=== PATIENT | female | born 1995 | race African-American/Black ===

== ENCOUNTER 2023-02-01 22:23 | Inpatient (IN) | payer OTHER ==
[2023-02-01 22:45] VITALS: BMI 38.0
[2023-02-01] MEDS ORDERED: hydrALAZINE 20 MG/ML VIAL ONE (23:22)
[2023-02-01] MEDS ORDERED: Ondansetron ODT 4 MG TAB PO PRN (23:30)
[2023-02-01] MEDS ORDERED: HYDROcodone/Acetaminophen 5/325 mg Tablet PO PRN (23:30)
[2023-02-01] MEDS ORDERED: Ondansetron PF 4 MG/2 ML Vial IVP PRN (23:30)
[2023-02-01] MEDS ORDERED: hydrALAZINE 20 MG/ML VIAL SLOW IVP PRN ×2 (23:34)
[2023-02-01] MEDS ORDERED: Lorazepam 2 MG/ML VIAL SLOW IVP PRN (23:34)
[2023-02-01] MEDS ORDERED: Labetalol HCl 100 MG/20 ML VIAL SLOW IVP PRN (23:34)
[2023-02-01] MEDS ORDERED: Calcium Gluc 4.6 MEQ/10 ML (100 MG/ML) SLOW IVP PRN (23:34)
[2023-02-01] MEDS ORDERED: Magnesium Sulfate 20 gm/500 ml 20 GM/500 ML BAG IVPB SCH (23:45)
[2023-02-02 03:48] LABS: #Basophils 0.1 10x3/uL (0.0-0.2); #Eosinphils 0.4 10x3/uL (0.0-0.5); #Monocytes 0.9 10x3/uL (0.0-1.1); #Neutrophils 5.2 10x3/uL (1.5-8.4); %Basophils 0.5 % (0.0-2.0); %Eosinophils 4.3 % (0.0-6.0); %Monocytes 8.7 % (0.0-10.0); %Neutrophils 52.3 % (40.0-75.0); Hematocrit 39.8 % (34.9-44.5); Hemoglobin 13.2 g/dL (12.0-15.5); Mean Corpuscular HGB CONC 33.2 g/dL (32.0-36.0); Mean Corpuscular Hemoglobin 28.3 pg (27.0-33.0); Mean Corpuscular Volume 85.2 fl (81.6-98.3); Mean Platelet Volume 9.2 fl (7.4-10.4); Platelet Count 310 10x3/uL (150-450); RBC Distribution Width 12.7 % (11.5-14.5); Red Blood Cell (RBC) Count 4.67 10x6/uL (3.90-5.03); White Blood Cell (WBC) Count 9.9 10x3/uL (3.5-10.5)
[2023-02-02 03:58] LABS: ALT (SGPT) 44 U/L (8-55); AST (SGOT) 21 U/L (5-34); Albumin 3.7 g/dL (3.5-5.0); Alkaline Phosphatase 68 U/L (40-110); Anion Gap 12 mmol/L (10-20); BUN (Urea Nitrogen) 13 mg/dL (7.0-18.7); Bilirubin, Total 0.2 mg/dL (0.2-1.2); Calc. Creatinine Clearance 227 mL/min (70-130); Calcium 7.9 mg/dL (7.8-10.44); Carbon Dioxide 23 mmol/L (22-29); Chloride 105 mmol/L (98-107); Estimated GFR 126; Globulin 2.8 g/dL (2.4-3.5); Glucose 118 mg/dL (70-105); Potassium 3.6 mmol/L (3.5-5.1); Protein, Total 6.5 g/dL (6.0-8.3); Sodium 136 mmol/L (136-145)
[2023-02-02] MEDS ORDERED: Ibuprofen 800 MG TAB PO PRN (05:47)
[2023-02-02] MEDS: Labetalol HCl 100 MG/20 ML VIAL SLOW IVP PRN ×2 (06:47→11:03)
[2023-02-02] MEDS ORDERED: hydrALAZINE 20 MG/ML VIAL SLOW IVP SCH (08:00)
[2023-02-02] MEDS ORDERED: Labetalol HCl 100 MG TAB PO SCH ×2 (12:00→21:00)
[2023-02-02] MEDS: Acetaminophen 325 MG TAB PO PRN ×2 (12:05→22:22)
[2023-02-02] MEDS ORDERED: Amlodipine 5 MG TAB PO SCH (12:15)
[2023-02-02 12:29] LABS: ALT (SGPT) 41 U/L (8-55); AST (SGOT) 20 U/L (5-34)
[2023-02-02 15:27] LABS: Uric Acid 4.9 mg/dL (2.6-6.0)
[2023-02-03] MEDS ORDERED: Amlodipine 5 MG TAB PO SCH (09:00)
[2023-02-03] MEDS: Acetaminophen 325 MG TAB PO PRN (09:09)
[2023-02-03 13:11] VITALS: BP 131/66; TEMP 98.8
== END 2023-02-03 16:42 | disposition home or self-care (01) | DRG 305 ==
LOC: CSHLD/OP 22:23 → CSHLD 23:45 → CSHTELE 02-02 21:10
PROVIDERS: ADMIT Obstetrics & Gynecology; ATTEND Obstetrics & Gynecology
DX: I10 Essential (primary) hypertension (principal); R51.9 Headache, unspecified; R20.2 Paresthesia of skin; H53.9 Unspecified visual disturbance; Z88.8 Allergy status to other drugs, medicaments and biological substances; Z79.899 Other long term (current) drug therapy
CPT/HCPCS: 36415; 70470; 70551; 80053; 81001; 82570; 83615; 84156; 84450; 84460; 84550; 84703; 85025; 85610; 85730; 87086; 96365; 96366; 96375; J0360; J0780; J1885; J3475; J7070

== ENCOUNTER 2024-03-06 12:42 | Emergency (ER) | payer OTHER, SELFPAY ==
[2024-03-06] MEDS ORDERED: Ondansetron ODT 4 MG TAB ONE (13:01)
[2024-03-06 13:24] LABS: Bilirubin Neg (Negative); Blood, Urine Negative (Negative); Clarity Clear (Clear); Glucose, Urine (Dipstick) Normal (Negative); Ketone, Urine Negative (Negative); Leukocyte Negative (Negative); Nitrite Positive (Negative); Protein, Urine (Dipstick) 15 mg/dl (Neg-Trace); Urobilinogen Normal mg/dL (Less than 2)
[2024-03-06 13:31] LABS: Pregnancy Test - Urine (BHCG) POSITIVE (Negative); Pregu Control Background? CLEAR/WHITE (CLR/WHITE); Pregu Control Bar Appear? YES (CONTROL BAR)
[2024-03-06 13:42] LABS: CAUTI Indications for Culture Alt mental st,lethar; RBC/HPF 0-3 HPF (0-3)
[2024-03-06 13:43] LABS: Bacteria/HPF 2+ HPF (None Seen); Urine Culture Reflex No No
== END 2024-03-06 13:43 | disposition home or self-care (01) ==
LOC: CSHERS 12:42
DX: O98.511 Other viral diseases complicating pregnancy, first trimester (principal); O23.41 Unspecified infection of urinary tract in pregnancy, first trimester; N39.0 Urinary tract infection, site not specified; Z3A.00 Weeks of gestation of pregnancy not specified
CPT/HCPCS: 81001; 81025; 87428; 99283; Q0162